=== PATIENT | female | born 1975 | race Caucasian/White ===

== ENCOUNTER → 2017-04-19 | Outpatient (CLI) | payer BC ==
[~2017-04-19] MED LIST: KEFLEX 500MG.500 MG PO; MEDROL 4MG. DOSE4 MG PO; NAPROXEN SODIU500 MG PO; PERCOCET 325 MG1 TA4 PO
--- NOTE | 2017-04-21 06:52 | RADIOLOGY REPORT PS360 ---
CT EXT.UPPER-LT-W/O CONTRAST CLINICAL INDICATION: Left wrist pain, history of fracture, follow-up fracture LT WRIST PAIN ORDERING PHYSICIAN: JANIS ROBERTS PATIENT AGE: 41 years COMPARISON: 10/23/2016 TECHNIQUE: Axial images are obtained without contrast. Sagittal and coronal and 3-D reformatted images are also generated and reviewed. There is a well-circumscribed transverse lucency involving the distal aspect of the radius anteriorly consistent with a persistent fracture line from a nonhealed transverse fracture. Fracture is healed posteriorly. There is some heterogeneous density involving the distal fracture fragment but no evidence of a destructive process such as osteomyelitis. No abnormal fluid collections evident. IMPRESSION: Incomplete bony union involves the anterior aspect of the distal radial fracture.
== END ==
LOC: RAD 07:52
DX: M25.532 Pain in left wrist (principal)